=== PATIENT | female | born 1940 | race Caucasian/White ===

== ENCOUNTER 2021-06-28 10:55 | Inpatient (IN) ==
[2021-06-28] MEDS: rOPINIRole 0.25 MG TABLET PO SCH (22:25)
[2021-06-28] MEDS: Carbidopa/Levodopa 25/100 TABLET PO SCH (22:25)
[2021-06-28] MEDS: Famotidine 20 MG TABLET PO SCH (22:33)
[2021-06-29 06:00] LABS: Eosinophils # 0.1 K/mcL (0.0-0.6); Eosinophils % 2.2 %; Hemoglobin 8.1 g/dL (11.5-15.4); Immature Granulocytes % 0.8 % (0-4); Lymphocytes # 0.5 K/mcL (0.6-4.6); Lymphocytes % 7.7 %; Mean Corpuscular HGB Conc 32.4 g/dL (31.6-35.5); Mean Corpuscular Hemoglobin 29.1 pg (28.0-33.3); Mean Corpuscular Volume 89.9 fL (83.0-100.0); Mean Platelet Volume 9.8 fL (9.4-12.4); Monocytes # 0.6 K/mcL (0.0-1.3); Neutrophils # 5.2 K/mcL (1.6-8.9); Platelet Count 574 K/mcL (140-400); Red Blood Count 2.78 M/mcL (3.82-4.97); Red Cell Distribution Width 14.6 % (11.5-14.5); Segmented Neutrophils % 80.3 %; White Blood Count 6.5 K/mcL (4.3-11.1)
[2021-06-29] MEDS: *HR* Enoxaparin 40 MG/0.4 ML SYRINGE SQ SCH (06:05)
[2021-06-29 06:13] LABS: BUN/Creatinine Ratio 55 (6-26); Blood Urea Nitrogen 41 mg/dL (8-23); Calcium 7.9 mg/dL (8.6-10.3); Carbon Dioxide 29 mEq/L (23-29); Chloride 94 mEq/L (98-107); Glucose 75 mg/dL (70-105); Osmolality,Calculated 277 (280-300); Potassium 3.8 mEq/L (3.5-5.1); Sodium 129 mEq/L (136-145); eGFR For African Americans > 60 (> 60); eGFR For Non-African Americans > 60 (> 60)
[2021-06-29] MEDS: dexAMETHasone 4 MG TABLET PO SCH (09:08)
[2021-06-29] MEDS: Aspirin 81 MG TAB.CHEW PO SCH (09:08)
[2021-06-29] MEDS: Vitamin B Complex/Vit C/Vit E 1 EACH TABLET PO SCH (09:08)
[2021-06-29] MEDS ORDERED: 0.9 % Sodium Chloride 500 ML IVC ONE (11:48)
[2021-06-29] MEDS: Acetylcysteine 10% 2 ML INHSOL IH SCH ×2 (15:20→20:06)
[2021-06-29] MEDS ORDERED: Ipratropium/Albuterol Neb 3 ML IH SCH (16:00)
[2021-06-29] MEDS: levoFLOXacin 750 MG/150 ML 750 MG/150 ML BAG IVPB SCH (16:44)
[2021-06-29] MEDS: Ipratropium 1 PUFF INHALER IH SCH ×2 (20:11→23:43)
[2021-06-29] MEDS: Carbidopa/Levodopa 25/100 TABLET PO SCH (21:18)
[2021-06-29] MEDS: rOPINIRole 0.25 MG TABLET PO SCH (21:18)
[2021-06-29] MEDS: Famotidine 20 MG TABLET PO SCH (21:18)
[2021-06-30] MEDS: Acetylcysteine 10% 2 ML INHSOL IH SCH ×3 (03:52→14:49)
[2021-06-30] MEDS: Ipratropium 1 PUFF INHALER IH SCH ×6 (03:52→21:44)
[2021-06-30] MEDS: *HR* Enoxaparin 40 MG/0.4 ML SYRINGE SQ SCH (04:57)
[2021-06-30 06:08] LABS: Hematocrit 22.5 % (35.3-44.9); Hemoglobin 7.3 g/dL (11.5-15.4); Mean Corpuscular HGB Conc 32.4 g/dL (31.6-35.5); Mean Corpuscular Hemoglobin 29.3 pg (28.0-33.3); Mean Corpuscular Volume 90.4 fL (83.0-100.0); Mean Platelet Volume 9.9 fL (9.4-12.4); Platelet Count 474 K/mcL (140-400); Red Blood Count 2.49 M/mcL (3.82-4.97); Red Cell Distribution Width 14.6 % (11.5-14.5); White Blood Count 7.7 K/mcL (4.3-11.1)
[2021-06-30 06:45] LABS: BUN/Creatinine Ratio 50 (6-26); Blood Urea Nitrogen 30 mg/dL (8-23); Carbon Dioxide 24 mEq/L (23-29); Chloride 100 mEq/L (98-107); Potassium 4.2 mEq/L (3.5-5.1); Sodium 129 mEq/L (136-145); eGFR For African Americans > 60 (> 60); eGFR For Non-African Americans > 60 (> 60)
[2021-06-30 06:47] LABS: Glucose 91 mg/dL (70-105); Osmolality,Calculated 274 (280-300)
[2021-06-30] MEDS: Vitamin B Complex/Vit C/Vit E 1 EACH TABLET PO SCH (08:49)
[2021-06-30] MEDS: dexAMETHasone 4 MG TABLET PO SCH (08:49)
[2021-06-30] MEDS: Aspirin 81 MG TAB.CHEW PO SCH (08:49)
[2021-06-30] MEDS: levoFLOXacin 750 MG/150 ML 750 MG/150 ML BAG IVPB SCH (08:50)
[2021-06-30 13:00] LABS: Ferritin 134 ng/mL (10-120)
[2021-06-30] MEDS ORDERED: rOPINIRole 0.25 MG TABLET PO ONE (13:58)
[2021-06-30 14:00] LABS: C-Reactive Protein 36 mg/L (Less than 10)
[2021-06-30] MEDS: rOPINIRole 0.25 MG TABLET PO SCH (20:50)
[2021-06-30] MEDS: Carbidopa/Levodopa 25/100 TABLET PO SCH (20:50)
[2021-06-30] MEDS: Famotidine 20 MG TABLET PO SCH (20:50)
[2021-07-01] MEDS: Ipratropium 1 PUFF INHALER IH SCH ×4 (04:17→22:07)
[2021-07-01 04:28] LABS: Eosinophils % 0.2 %; Hemoglobin 7.1 g/dL (11.5-15.4); Lymphocytes # 0.6 K/mcL (0.6-4.6); Lymphocytes % 6.6 %; Mean Corpuscular HGB Conc 32.3 g/dL (31.6-35.5); Mean Corpuscular Hemoglobin 29.8 pg (28.0-33.3); Mean Corpuscular Volume 92.4 fL (83.0-100.0); Monocytes # 0.7 K/mcL (0.0-1.3); Monocytes % 7.7 %; Neutrophils # 8.1 K/mcL (1.6-8.9); Platelet Count 425 K/mcL (140-400); Red Blood Count 2.38 M/mcL (3.82-4.97); Red Cell Distribution Width 14.9 % (11.5-14.5); Segmented Neutrophils % 84.5 %; White Blood Count 9.6 K/mcL (4.3-11.1)
[2021-07-01] MEDS: *HR* Enoxaparin 40 MG/0.4 ML SYRINGE SQ SCH (04:39)
[2021-07-01 04:43] LABS: BUN/Creatinine Ratio 36 (6-26); Blood Urea Nitrogen 24 mg/dL (8-23); Calcium 7.9 mg/dL (8.6-10.3); Carbon Dioxide 26 mEq/L (23-29); Chloride 102 mEq/L (98-107); Glucose 95 mg/dL (70-105); Osmolality,Calculated 276 (280-300); Potassium 4.6 mEq/L (3.5-5.1); Sodium 131 mEq/L (136-145); eGFR For African Americans > 60 (> 60); eGFR For Non-African Americans > 60 (> 60)
[2021-07-01] MEDS: Acetaminophen 325 MG TABLET PO PRN ×2 (08:38→15:45)
[2021-07-01] MEDS: Vitamin B Complex/Vit C/Vit E 1 EACH TABLET PO SCH (08:38)
[2021-07-01] MEDS: dexAMETHasone 4 MG TABLET PO SCH (08:39)
[2021-07-01] MEDS: Aspirin 81 MG TAB.CHEW PO SCH (08:39)
[2021-07-01] MEDS: levoFLOXacin 750 MG/150 ML 750 MG/150 ML BAG IVPB SCH (08:39)
[2021-07-01] MEDS ORDERED: 0.9 % Sodium Chloride 250 ML ONE ×2 (14:33→15:26)
[2021-07-01] MEDS: Famotidine 20 MG TABLET PO SCH (21:23)
[2021-07-01] MEDS: Carbidopa/Levodopa 25/100 TABLET PO SCH (21:23)
[2021-07-01] MEDS: rOPINIRole 0.25 MG TABLET PO SCH (21:23)
[2021-07-01] MEDS: Melatonin 3 MG TABLET PO SCH (21:38)
[2021-07-02] MEDS: Ipratropium 1 PUFF INHALER IH SCH ×4 (03:53→20:34)
[2021-07-02] MEDS: *HR* Enoxaparin 40 MG/0.4 ML SYRINGE SQ SCH (04:51)
[2021-07-02 05:35] LABS: Basophils % 0.1 %; Eosinophils % 0.1 %; Hematocrit 27.9 % (35.3-44.9); Immature Granulocytes % 0.7 % (0-4); Lymphocytes # 0.7 K/mcL (0.6-4.6); Lymphocytes % 5.9 %; Mean Corpuscular HGB Conc 32.6 g/dL (31.6-35.5); Mean Corpuscular Hemoglobin 29.2 pg (28.0-33.3); Mean Corpuscular Volume 89.4 fL (83.0-100.0); Mean Platelet Volume 10.1 fL (9.4-12.4); Monocytes # 0.7 K/mcL (0.0-1.3); Monocytes % 6.1 %; Platelet Count 374 K/mcL (140-400); Red Blood Count 3.12 M/mcL (3.82-4.97); Red Cell Distribution Width 16.2 % (11.5-14.5); Segmented Neutrophils % 87.1 %; White Blood Count 12.1 K/mcL (4.3-11.1)
[2021-07-02 05:42] LABS: Neutrophils # 10.5 K/mcL (1.6-8.9)
[2021-07-02 05:45] LABS: Hemoglobin 9.1 g/dL (11.5-15.4)
[2021-07-02 05:51] LABS: Alanine Aminotransferase 6 Units/L (7-52); Albumin 2.5 g/dL (3.5-5.7); Albumin/Globulin Ratio 1.1 (1.1-2.2); Alkaline Phosphatase 90 Units/L (34-104); Aspartate Amino Transferase 28 Units/L (13-39); BUN/Creatinine Ratio 37 (6-26); Bilirubin,Total 0.5 mg/dL (0.3-1.0); Blood Urea Nitrogen 20 mg/dL (8-23); Calcium 7.7 mg/dL (8.6-10.3); Carbon Dioxide 27 mEq/L (23-29); Chloride 102 mEq/L (98-107); Globulin 2.3 g/dL (2.4-3.5); Glucose 83 mg/dL (70-105); Magnesium 1.9 mg/dL (1.6-2.6); Osmolality,Calculated 276 (280-300); Potassium 4.2 mEq/L (3.5-5.1); Sodium 132 mEq/L (136-145); Total Protein 4.8 g/dL (6.4-8.9); eGFR For African Americans > 60 (> 60); eGFR For Non-African Americans > 60 (> 60)
[2021-07-02 08:00] LABS: Iron 43 mcg/dL (50-170)
[2021-07-02] MEDS: Aspirin 81 MG TAB.CHEW PO SCH (08:59)
[2021-07-02] MEDS: levoFLOXacin 750 MG/150 ML 750 MG/150 ML BAG IVPB SCH (08:59)
[2021-07-02] MEDS: Vitamin B Complex/Vit C/Vit E 1 EACH TABLET PO SCH (08:59)
[2021-07-02] MEDS: Ondansetron ODT 4 MG TAB.RAPDIS SL PRN (12:13)
[2021-07-02] MEDS: Acetaminophen 325 MG TABLET PO PRN (14:16)
[2021-07-02] MEDS ORDERED: Melatonin 3 MG TABLET PO SCH (21:00)
[2021-07-02] MEDS: Carbidopa/Levodopa 25/100 TABLET PO SCH (21:18)
[2021-07-02] MEDS: Famotidine 20 MG TABLET PO SCH (21:18)
[2021-07-02] MEDS: rOPINIRole 0.25 MG TABLET PO SCH (21:18)
[2021-07-02] MEDS: Melatonin 3 MG TABLET PO SCH (21:19)
[2021-07-03] MEDS: Ipratropium 1 PUFF INHALER IH SCH ×4 (04:24→20:39)
[2021-07-03] MEDS: *HR* Enoxaparin 40 MG/0.4 ML SYRINGE SQ SCH (05:58)
[2021-07-03] MEDS: Acetaminophen 325 MG TABLET PO PRN ×2 (06:25→20:45)
[2021-07-03] MEDS: Aspirin 81 MG TAB.CHEW PO SCH (07:59)
[2021-07-03] MEDS: Vitamin B Complex/Vit C/Vit E 1 EACH TABLET PO SCH (08:00)
[2021-07-03] MEDS: levoFLOXacin 750 MG/150 ML 750 MG/150 ML BAG IVPB SCH (08:00)
[2021-07-03] MEDS: Famotidine 20 MG TABLET PO SCH (20:44)
[2021-07-03] MEDS: rOPINIRole 0.25 MG TABLET PO SCH (20:44)
[2021-07-03] MEDS: Carbidopa/Levodopa 25/100 TABLET PO SCH (20:45)
[2021-07-03] MEDS: Melatonin 3 MG TABLET PO SCH (20:45)
[2021-07-04] MEDS: Ipratropium 1 PUFF INHALER IH SCH ×4 (03:52→20:22)
[2021-07-04] MEDS: *HR* Enoxaparin 40 MG/0.4 ML SYRINGE SQ SCH (06:07)
[2021-07-04 06:28] LABS: % Iron Saturation 18 % (15-50); Transferrin 168 mg/dL (200-400)
[2021-07-04] MEDS: levoFLOXacin 750 MG/150 ML 750 MG/150 ML BAG IVPB SCH (08:47)
[2021-07-04] MEDS: Aspirin 81 MG TAB.CHEW PO SCH (08:47)
[2021-07-04] MEDS: Vitamin B Complex/Vit C/Vit E 1 EACH TABLET PO SCH (08:47)
[2021-07-04] MEDS: Melatonin 3 MG TABLET PO SCH (20:17)
[2021-07-04] MEDS: Famotidine 20 MG TABLET PO SCH (20:18)
[2021-07-04] MEDS: rOPINIRole 0.25 MG TABLET PO SCH (20:18)
[2021-07-04] MEDS: Carbidopa/Levodopa 25/100 TABLET PO SCH (20:19)
[2021-07-05] MEDS: Ipratropium 1 PUFF INHALER IH SCH ×4 (04:09→20:15)
[2021-07-05] MEDS: Sennosides/Docusate Sodium TABLET PO PRN ×2 (06:02→23:00)
[2021-07-05] MEDS: *HR* Enoxaparin 40 MG/0.4 ML SYRINGE SQ SCH (06:03)
[2021-07-05] MEDS: Aspirin 81 MG TAB.CHEW PO SCH (09:28)
[2021-07-05] MEDS: Vitamin B Complex/Vit C/Vit E 1 EACH TABLET PO SCH (09:28)
[2021-07-05] MEDS: levoFLOXacin 750 MG/150 ML 750 MG/150 ML BAG IVPB SCH (09:28)
[2021-07-05] MEDS: Melatonin 3 MG TABLET PO SCH (23:01)
[2021-07-05] MEDS: Carbidopa/Levodopa 25/100 TABLET PO SCH (23:01)
[2021-07-05] MEDS: Famotidine 20 MG TABLET PO SCH (23:01)
[2021-07-05] MEDS: rOPINIRole 0.25 MG TABLET PO SCH (23:01)
[2021-07-06] MEDS: Ipratropium 1 PUFF INHALER IH SCH ×4 (04:23→22:15)
[2021-07-06] MEDS: *HR* Enoxaparin 40 MG/0.4 ML SYRINGE SQ SCH (05:31)
[2021-07-06] MEDS: Vitamin B Complex/Vit C/Vit E 1 EACH TABLET PO SCH (08:32)
[2021-07-06] MEDS: levoFLOXacin 750 MG/150 ML 750 MG/150 ML BAG IVPB SCH (08:32)
[2021-07-06] MEDS: Aspirin 81 MG TAB.CHEW PO SCH (08:32)
[2021-07-06] MEDS: rOPINIRole 0.25 MG TABLET PO SCH (22:19)
[2021-07-06] MEDS: Sennosides/Docusate Sodium TABLET PO PRN (22:19)
[2021-07-06] MEDS: Melatonin 3 MG TABLET PO SCH (22:19)
[2021-07-06] MEDS: Carbidopa/Levodopa 25/100 TABLET PO SCH (22:19)
[2021-07-06] MEDS: Famotidine 20 MG TABLET PO SCH (22:19)
[2021-07-06] MEDS: Acetaminophen 325 MG TABLET PO PRN (22:20)
[2021-07-06] MEDS: Ondansetron ODT 4 MG TAB.RAPDIS SL PRN (23:18)
[2021-07-07] MEDS: Ipratropium 1 PUFF INHALER IH SCH ×4 (04:08→20:34)
[2021-07-07] MEDS: *HR* Enoxaparin 40 MG/0.4 ML SYRINGE SQ SCH (05:33)
[2021-07-07 06:26] LABS: Hematocrit 26.7 % (35.3-44.9); Hemoglobin 8.5 g/dL (11.5-15.4); Mean Corpuscular HGB Conc 31.8 g/dL (31.6-35.5); Mean Corpuscular Hemoglobin 28.9 pg (28.0-33.3); Mean Corpuscular Volume 90.8 fL (83.0-100.0); Platelet Count 276 K/mcL (140-400); Red Blood Count 2.94 M/mcL (3.82-4.97); Red Cell Distribution Width 15.8 % (11.5-14.5); White Blood Count 5.6 K/mcL (4.3-11.1)
[2021-07-07 06:58] LABS: Alanine Aminotransferase 7 Units/L (7-52); Albumin 2.6 g/dL (3.5-5.7); Albumin/Globulin Ratio 0.9 (1.1-2.2); Alkaline Phosphatase 92 Units/L (34-104); Aspartate Amino Transferase 24 Units/L (13-39); BUN/Creatinine Ratio 44 (6-26); Bilirubin,Total 0.2 mg/dL (0.3-1.0); Blood Urea Nitrogen 27 mg/dL (8-23); Calcium 7.9 mg/dL (8.6-10.3); Carbon Dioxide 29 mEq/L (23-29); Chloride 96 mEq/L (98-107); Globulin 2.8 g/dL (2.4-3.5); Glucose 84 mg/dL (70-105); Osmolality,Calculated 268 (280-300); Potassium 4.1 mEq/L (3.5-5.1); Sodium 127 mEq/L (136-145); Total Protein 5.4 g/dL (6.4-8.9); eGFR For African Americans > 60 (> 60); eGFR For Non-African Americans > 60 (> 60)
[2021-07-07] MEDS: levoFLOXacin 750 MG/150 ML 750 MG/150 ML BAG IVPB SCH (08:46)
[2021-07-07] MEDS: Vitamin B Complex/Vit C/Vit E 1 EACH TABLET PO SCH (08:46)
[2021-07-07] MEDS: Aspirin 81 MG TAB.CHEW PO SCH (08:46)
[2021-07-07] MEDS: Acetaminophen 325 MG TABLET PO PRN (20:25)
[2021-07-07] MEDS: rOPINIRole 0.25 MG TABLET PO SCH (20:26)
[2021-07-07] MEDS: Sennosides/Docusate Sodium TABLET PO PRN (20:26)
[2021-07-07] MEDS: Famotidine 20 MG TABLET PO SCH (20:26)
[2021-07-07] MEDS: Carbidopa/Levodopa 25/100 TABLET PO SCH (20:26)
[2021-07-07] MEDS: Melatonin 3 MG TABLET PO SCH (20:26)
[2021-07-08] MEDS: Ipratropium 1 PUFF INHALER IH SCH ×4 (04:05→20:39)
[2021-07-08] MEDS: levoFLOXacin 750 MG/150 ML 750 MG/150 ML BAG IVPB SCH (08:01)
[2021-07-08] MEDS: *HR* Enoxaparin 40 MG/0.4 ML SYRINGE SQ SCH (08:01)
[2021-07-08] MEDS: Aspirin 81 MG TAB.CHEW PO SCH (08:02)
[2021-07-08] MEDS: Vitamin B Complex/Vit C/Vit E 1 EACH TABLET PO SCH (08:02)
[2021-07-08] MEDS: Carbidopa/Levodopa 25/100 TABLET PO SCH (20:32)
[2021-07-08] MEDS: Melatonin 3 MG TABLET PO SCH (20:33)
[2021-07-08] MEDS: rOPINIRole 0.25 MG TABLET PO SCH (20:33)
[2021-07-08] MEDS: Acetaminophen 325 MG TABLET PO PRN (20:33)
[2021-07-08] MEDS: Sennosides/Docusate Sodium TABLET PO PRN (20:33)
[2021-07-08] MEDS: Famotidine 20 MG TABLET PO SCH (20:33)
[2021-07-09] MEDS: Ipratropium 1 PUFF INHALER IH SCH ×4 (04:17→21:38)
[2021-07-09] MEDS: *HR* Enoxaparin 40 MG/0.4 ML SYRINGE SQ SCH (05:24)
[2021-07-09] MEDS: Vitamin B Complex/Vit C/Vit E 1 EACH TABLET PO SCH (07:43)
[2021-07-09] MEDS: Aspirin 81 MG TAB.CHEW PO SCH (07:43)
[2021-07-09] MEDS: levoFLOXacin 750 MG/150 ML 750 MG/150 ML BAG IVPB SCH (07:44)
[2021-07-09] MEDS: Melatonin 3 MG TABLET PO SCH (19:38)
[2021-07-09] MEDS: Sennosides/Docusate Sodium TABLET PO PRN (19:38)
[2021-07-09] MEDS: Famotidine 20 MG TABLET PO SCH (19:39)
[2021-07-09] MEDS: rOPINIRole 0.25 MG TABLET PO SCH (19:39)
[2021-07-09] MEDS: Carbidopa/Levodopa 25/100 TABLET PO SCH (19:39)
[2021-07-10] MEDS: Ipratropium 1 PUFF INHALER IH SCH ×4 (04:28→21:24)
[2021-07-10] MEDS: *HR* Enoxaparin 40 MG/0.4 ML SYRINGE SQ SCH (04:45)
[2021-07-10 04:50] LABS: Basophils % 0.4 %; Eosinophils # 0.3 K/mcL (0.0-0.6); Eosinophils % 5.5 %; Hematocrit 25.7 % (35.3-44.9); Hemoglobin 8.3 g/dL (11.5-15.4); Immature Granulocytes % 0.5 % (0-4); Lymphocytes # 0.7 K/mcL (0.6-4.6); Lymphocytes % 13.2 %; Mean Corpuscular HGB Conc 32.3 g/dL (31.6-35.5); Mean Corpuscular Hemoglobin 29.7 pg (28.0-33.3); Mean Corpuscular Volume 92.1 fL (83.0-100.0); Mean Platelet Volume 9.6 fL (9.4-12.4); Monocytes # 0.7 K/mcL (0.0-1.3); Monocytes % 12.3 %; Neutrophils # 3.7 K/mcL (1.6-8.9); Platelet Count 301 K/mcL (140-400); Red Blood Count 2.79 M/mcL (3.82-4.97); Red Cell Distribution Width 16.1 % (11.5-14.5); Segmented Neutrophils % 68.1 %; White Blood Count 5.5 K/mcL (4.3-11.1)
[2021-07-10 05:05] LABS: BUN/Creatinine Ratio 44 (6-26); Blood Urea Nitrogen 27 mg/dL (8-23); Calcium 8.2 mg/dL (8.6-10.3); Carbon Dioxide 24 mEq/L (23-29); Chloride 100 mEq/L (98-107); Glucose 91 mg/dL (70-105); Osmolality,Calculated 275 (280-300); Potassium 4.2 mEq/L (3.5-5.1); Sodium 130 mEq/L (136-145); eGFR For African Americans > 60 (> 60); eGFR For Non-African Americans > 60 (> 60)
[2021-07-10] MEDS: Vitamin B Complex/Vit C/Vit E 1 EACH TABLET PO SCH (09:00)
[2021-07-10] MEDS: Aspirin 81 MG TAB.CHEW PO SCH (09:00)
[2021-07-10] MEDS: Sennosides/Docusate Sodium TABLET PO PRN ×2 (09:09→21:52)
[2021-07-10] MEDS ORDERED: Bisacodyl 10 MG RECTAL SUPPOSITORY RC PRN (11:13)
[2021-07-10 20:58] VITALS: PULSE 91
[2021-07-10] MEDS: Famotidine 20 MG TABLET PO SCH (21:51)
[2021-07-10] MEDS: Carbidopa/Levodopa 25/100 TABLET PO SCH (21:52)
[2021-07-10] MEDS: Melatonin 3 MG TABLET PO SCH (21:52)
[2021-07-10] MEDS: rOPINIRole 0.25 MG TABLET PO SCH (21:52)
[2021-07-11] MEDS: Ipratropium 1 PUFF INHALER IH SCH ×3 (03:49→16:04)
[2021-07-11] MEDS: *HR* Enoxaparin 40 MG/0.4 ML SYRINGE SQ SCH (05:48)
[2021-07-11] MEDS: Vitamin B Complex/Vit C/Vit E 1 EACH TABLET PO SCH (07:59)
[2021-07-11] MEDS: Aspirin 81 MG TAB.CHEW PO SCH (07:59)
[2021-07-11 08:23] VITALS: BP 100/61; RESP 18; TEMP 98.9
[2021-07-11] MEDS: Acetaminophen 325 MG TABLET PO PRN (10:07)
[2021-07-11 10:32] VITALS: O2SAT 95
== END 2021-07-11 18:43 | DRG 177 ==
LOC: INPGRE 21:04
PROVIDERS: ADMIT Family Medicine; ATTEND Family Medicine